=== PATIENT | male | born 1990 | race Caucasian/White ===

== ENCOUNTER 2023-06-24 19:06 | Emergency (ER) | payer OTHER ==
[2023-06-24] MEDS ORDERED: Ibuprofen 200 MG TAB ONE (19:42)
[2023-06-24] MEDS ORDERED: Acetaminophen 500 MG TAB ONE (19:43)
== END 2023-06-24 20:45 | disposition home or self-care (01) ==
LOC: CSHERS 19:06
DX: R07.9 Chest pain, unspecified (principal)
CPT/HCPCS: 71045; 93005; 93010